=== PATIENT | female | born 1995 | race Caucasian/White ===

== ENCOUNTER 2017-02-15 12:52 | Emergency (ER) | payer OTHER ==
[~2017-02-15] VITALS: Ht 160 cm; Wt 106.1 kg
[~2017-02-15 12:52] MED LIST: ALEVE220 MG PO; BENTYL20 MG PO; NAPROSYN-EC500 MG PO; PROMETHAZINE HC25 M1 PO
[2017-02-15 13:22] LABS: HEMATOCRIT 41.7 % (36.0-46.0); MCH 30.6 PG (29.0-34.0); MCHC 33.1 G/DL (30.0-36.0); MCV 92.5 FL (83-99); MEAN PLAT.VOLUME 10.5 uM^3 (9.5-12.4); PLATELET COUNT 290 K/uL (156-360); RBC DIS.WIDTH-CV 12.2 % (11.8-14.6); RBC DIS.WIDTH-SD 41.5 % (39-53); RED BLOOD COUNT 4.51 M/uL (3.80-5.20); WHITE BLOOD COUNT 7.6 K/uL (4.1-10.2)
[2017-02-15 13:31] LABS: CHLORIDE 104 mEq/L (99-109); POTASSIUM 4.1 mEq/L (3.7-5.4); SODIUM 140 mEq/L (136-147)
[2017-02-15 13:34] LABS: GLUCOSE 102 mg/dL (70-99)
[2017-02-15 13:35] LABS: ANION GAP 10 MEQ/L (2-14)
[2017-02-15 13:36] LABS: TOTAL BILIRUBIN 0.4 mg/dL (0.0-1.0)
[2017-02-15 13:37] LABS: ALKALINE PHOSPHATASE 54 IU/L (3-129); GFR ESTIMATE (CALCULATED) > 59 mL/min/
[2017-02-15 13:38] LABS: UREA NITROGEN (BUN) 11 mg/dL (9-23)
[2017-02-15 13:46] LABS: QUANTITATIVE HCG < 4.0 MIU/ML
[2017-02-15 14:26] LABS: ADD MIUA? YES; BILIRUBIN NEGATIVE; BLOOD SMALL; COLOR YELLOW ((YELLOW)); GLUCOSE (STRIP) NEGATIVE; KETONES NEGATIVE; LEUKOCYTES MODERATE; NITRITE NEGATIVE; PROTEIN (STRIP) NEGATIVE; SPECIFIC GRAVITY 1.012 (1.000-1.030); UROBILINOGEN 0.2 MG/DL (0.2-1.0)
[2017-02-15 14:34] LABS: BACTERIA RARE /HPF; CALCIUM OXALATE CRYSTALS 3+ /HPF; EPITHELIAL CELLS 2+ /HPF; GRANULAR CASTS 0-5 /LPF; HYALINE CASTS 0-5 /LPF; MUCUS 1+ /LPF; UCUL ADDED? YES; WHITE BLOOD CELLS 30-40 /HPF (0-5)
[2017-02-15] MEDS ORDERED: TYLENOL WITH C1 EACH PO (16:44)
[2017-02-15] MEDS ORDERED: CIPRO500 MG PO (16:44)
[2017-02-15 17:08] VITALS: BP 132/87
== END 2017-02-15 17:10 | disposition home or self-care (01) ==
LOC: EME 12:52
DX: N39.0 Urinary tract infection, site not specified (principal)
CPT/HCPCS: 74177; 80053; 81003; 84702; 85027; 87086; 99281; 99285; J2270; J2405; J7030